=== PATIENT | female | born 1960 | race Caucasian/White ===

== ENCOUNTER 2017-11-23 13:32 | Day surgery (SDC) | payer BC ==
[~2017-11-23 13:32] MED LIST: Lactated Ringers 1,000 ML IV SCH; Propofol 200 MG/20 ML SDV ONE; Sodium Chloride 0.9% 5 ML Syringe FLUSH PRN
[2017-11-23] MEDS ORDERED: Propofol 200 MG/20 ML SDV IV ONE (14:44)
--- NOTE | 2017-11-23 14:51 | PCM.PN ---
- General Info Date of Service: 11/23/17 - Review of Systems Systems Review Comment:: 57-year-old female referred for screening colonoscopy. She does have a chronic history of morning diarrhea. She is medically stable to proceed today with no significant recent change in her health status. I discussed the proposed colonoscopy with the patient. Risks are reviewed including but not limited to bleeding and GI injury. She agrees to undergo colonoscopy today. - Patient Data Vitals - Most Recent: Last Vital Signs Temp 96.7 F 11/23/17 13:49 Pulse 70 11/23/17 13:49 Resp 18 11/23/17 13:49 BP 131/81 11/23/17 13:49 Pulse Ox 99 11/23/17 13:49 Weight - Most Recent: 72.575 kg Med Orders - Current: Current Medications Lactated Ringer's (Ringers, Lactated) 1,000 mls @ 50 mls/hr IV ASDIRECTED ADINA Last Admin: 11/23/17 14:13 Dose: 50 mls/hr Sodium Chloride (Syrex Flush) 5 ml FLUSH Q8HR PRN PRN Reason: Keep Vein Open Discontinued Medications Propofol (Diprivan 20 Ml) Confirm Administered Dose 400 mg .ROUTE .STK-MED ONE Stop: 11/23/17 12:40 - Problem List Review Problem List Initiated/Reviewed/Updated: Yes - My Orders Last 24 Hours: My Active Orders 11/23/17 13:30 Patient to Empty Bladder [RC] ASDIRECTED Peripheral IV Care [RC] . DIRECTED Verify Patient Consent Obtain [RC] ASDIRECTED Lactated Ringers [Ringers, Lactated] 1,000 ml IV ASDIRECTED Sodium Chloride 0.9% [Syrex Flush] 5 ml FLUSH Q8HR PRN Peripheral IV Insertion Adult [OM.PC] Routine 11/23/17 Breakfast Nothing Per Oral Diet [DIET] - Assessment Assessment:: Colon cancer screening - Plan Plan:: Colonoscopy
--- NOTE | 2017-11-23 15:28 | PCM.OPNOTE ---
- General Post-Op/Procedure Note Date of Surgery/Procedure: 11/23/17 Operative Procedure(s): Colonoscopy Findings: Mild sigmoid diverticulosis External hemorrhoids Pre Op Diagnosis: Colon cancer screening Post-Op Diagnosis: Diverticulosis. Hemorrhoids Anesthesia Technique: MAC Primary Surgeon: Gianni Mcelroy Pathology: none Output, Urine Amount: 0 EBL in mLs: 0 Complications: None Condition: Good
--- NOTE | 2017-11-24 01:23 | PROC ---
PROVIDER: Gianni Mcelroy MD PRE-PROCEDURE DIAGNOSIS: Colon cancer screening. POST-PROCEDURE DIAGNOSIS: Sigmoid diverticulosis and external hemorrhoids. PROCEDURE PERFORMED: Colonoscopy. INDICATIONS FOR SURGERY: This 57-year-old female is referred today for screening colonoscopy. Her last colon exam was over 15 years ago. FINDINGS: The patient has a mild degree of sigmoid diverticulosis which does not appear to be acutely inflamed or otherwise complicated. She also has moderate-sized external hemorrhoids. The colon and rectum otherwise appear normal. PROCEDURE: The patient was taken to the operating room. She was given intravenous sedation, and with her in the left lateral decubitus position, digital rectal exam was performed showing no rectal masses. The Olympus colonoscope was inserted into the rectum, a retroflexed examination of the rectal canal is performed. The scope was then carefully advanced under direct visualization through the entire length of the colon until the cecum was reached. Cecal acquisition was confirmed by noting the normal internal cecal anatomy including the appendiceal orifice and ileocecal valve. The light was also noted to transilluminate the abdominal wall in the right lower quadrant. After examining the cecum, the scope was slowly withdrawn sequentially re- examining the colonic segments until the entire colon and rectum had been fully examined. The scope was then removed, and the patient was taken from the operating room in satisfactory condition. ESTIMATED BLOOD LOSS: Zero. COMPLICATIONS: None. PROGNOSIS: Good. /[id number]/MODL
== END 2017-11-23 17:10 | disposition home or self-care (01) ==
LOC: KA.SDS 13:32
PROVIDERS: ATTEND Surgery
DX: Z12.11 Encounter for screening for malignant neoplasm of colon (principal); K57.30 Diverticulosis of large intestine without perforation or abscess without bleeding; K64.4 Residual hemorrhoidal skin tags; F41.9 Anxiety disorder, unspecified; E55.9 Vitamin D deficiency, unspecified; Z79.899 Other long term (current) drug therapy
CPT/HCPCS: J2704; J7120

== ENCOUNTER 2021-04-17 12:00 | Emergency (ER) | payer BC ==
[2021-04-17] MEDS ORDERED: Sodium Chloride 0.9% 10 ML Syringe FLUSH PRN (12:13)
[2021-04-17 12:48] LABS: ANION GAP 14.2 mmol/L (5-15); CHLORIDE,CL 98 mmol/L (98-107); SODIUM,NA 135 mmol/L (136-145)
--- NOTE | 2021-04-17 13:10 | EDM.PDOC ---
ED HPI GENERAL MEDICAL PROBLEM - General Chief Complaint: Gastrointestinal Problem Stated Complaint: STOMACH CRAMPS,NOT FEELING GOOD Time Seen by Provider: 04/17/21 12:45 Source of Information: Reports: Patient History Limitations: Reports: No Limitations - History of Present Illness INITIAL COMMENTS - FREE TEXT/NARRATIVE: Patient presents with abdominal pain and cramping; also rectal pain and diarrhea. Increasing over past couple days. Nausea but no vomiting. Has had chills but hasn't checked temperature. Two weeks ago she was diagnosed with diverticulitis and took antibiotics for a week. She felt a lot like she feels now and it never completely resolved. CT showed significant diverticulitis of sigmoid colon and a walled-off abscess. 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 She has never had a known infection from this and prior to two weeks ago, had never had diverticulitis; just diverticulosis. 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: Psychiatric History: Reports: Anxiety Endocrine/Metabolic History: Reports: Hypothyroidism - Infectious Disease History Infectious Disease History: Reports: Chicken Pox - Past Surgical History GI Surgical History: Reports: Cholecystectomy, Colonoscopy, EGD Other GI Surgeries/Procedures: rectal-vaginal fistula Female Surgical History: Reports: Hysterectomy Endocrine Surgical History: Reports: None Social & Family History - Caffeine Use Caffeine Use: Reports: Coffee, Soda Other Caffeine Use: diet ED ROS GENERAL - Review of Systems Review Of Systems: See Below Constitutional: Reports: Chills, Malaise, Decreased Appetite HEENT: Denies: Throat Pain, Vision Change Respiratory: Denies: Shortness of Breath, Cough Cardiovascular: Denies: Chest Pain, Lightheadedness, Syncope GI/Abdominal: Reports: Abdominal Pain, Diarrhea, Nausea. Denies: Vomiting : Denies: Dysuria, Flank Pain Musculoskeletal: Reports: No Symptoms Skin: Reports: No Symptoms Neurological: Denies: Confusion, Dizziness, Seizure, Syncope, Trouble Speaking, Difficulty Walking Psychiatric: Reports: No Symptoms ED EXAM, GI/ABD - Physical Exam Exam: See Below Exam Limited By: No Limitations General Appearance: Alert, WD/WN, No Apparent Distress Eyes: Bilateral: Normal Appearance, EOMI Ears: Normal External Exam, Hearing Grossly Normal Nose: Normal Inspection, No Blood Throat/Mouth: Normal Inspection, Normal Lips, Normal Voice, No Airway Compromise Head: Atraumatic, Normocephalic Neck: Normal Inspection, Full Range of Motion Respiratory/Chest: No Respiratory Distress, Lungs Clear, Normal Breath Sounds Cardiovascular: Regular Rate, Rhythm, No Murmur GI/Abdominal Exam: Soft, No Organomegaly, No Distention, Tender (low abdomen, especially LLQ), Other (moderate bruit in LUQ, likely renal artery). No: Guarding, Rigid Rectal (Female) Exam: Other (I did external rectal exam to rule out superficial abscess; no inflammation or tenderness blair-rectally. No ZEN.). No: Hemorrhoids, Perirectal Abscess, Rectal Fissure, Tenderness Back Exam: Normal Inspection, Full Range of Motion. No: CVA Tenderness (L), CVA Tenderness (R) Extremities: Normal Inspection, Normal Range of Motion, No Pedal Edema Psychiatric: Normal Affect, Normal Mood Skin Exam: Warm, Dry, Intact, Normal Color, No Rash Course - Vital Signs Last Recorded V/S: Last Vital Signs Temp 97.7 F 04/17/21 16:06 Pulse 83 04/17/21 16:06 Resp 20 04/17/21 16:06 BP 134/84 04/17/21 16:06 Pulse Ox 99 04/17/21 16:06 - Orders/Labs/Meds Orders: Active Orders 24 hr Category Date Time Status Peripheral IV Care [RC] . DIRECTED Care 04/17/21 12:14 Active Sodium Chloride 0.9% [Normal Saline] 50 ml Med 04/17/21 13:45 Active IV ASDIRECTED Sodium Chloride 0.9% [Saline Flush] Med 04/17/21 12:13 Active 10 ml FLUSH Q8HR PRN Peripheral IV Insertion Adult [OM.PC] Routine Oth 04/17/21 12:13 Ordered Medication Orders Sodium Chloride (Normal Saline) 50 mls @ 200 mls/hr IV ASDIRECTED ADINA Last Admin: 04/17/21 13:42 Dose: 200 mls/hr Documented by: CHITO Sodium Chloride (Sodium Chloride 0.9% 10 Ml Syringe) 10 ml FLUSH Q8HR PRN PRN Reason: keep vein open Labs: Laboratory Tests 04/17/21 04/17/21 04/17/21 Range/Units 12:20 12:20 12:25 WBC 9.16 (5.00-10.00) 10^3/uL RBC 5.21 (3.80-5.50) 10^6/uL Hgb 15.9 (12.0-16.0) g/dL Hct 47.9 H (37.0-47.0) % MCV 91.9 (82.0-92.0) fL MCH 30.5 (27.0-31.0) pg MCHC 33.2 (32.0-36.0) g/dL RDW 12.4 (11.5-14.5) % Plt Count 240 (150-400) 10^3/uL MPV 9.5 (7.4-10.4) fL Immature Gran % (Auto) 0.2 (0.0-5.0) % Neut % (Auto) 85.0 H (50.0-70.0) % Lymph % (Auto) 8.1 L (20.0-40.0) % [place] % (Auto) 5.2 (2.0-8.0) % Eos % (Auto) 0.7 L (1.0-3.0) % Baso % (Auto) 0.8 (0.0-1.0) % Neut # (Auto) 7.79 H (2.50-7.00) 10^3/uL Lymph # (Auto) 0.74 L (1.00-4.00) 10^3/uL [place] # (Auto) 0.48 (0.10-0.80) 10^3/uL Eos # (Auto) 0.06 L (0.10-0.30) 10^3/uL Baso # (Auto) 0.07 (0.00-0.10) 10^3/uL Immature Gran # (Auto) 0.02 (0.00-0.50) 10^3/uL Sodium 135 L (136-145) mmol/L Potassium 4.0 (3.5-5.1) mmol/L Chloride 98 (98-107) mmol/L Carbon Dioxide 26.8 (21.0-32.0) mmol/L Anion Gap 14.2 (5-15) mmol/L BUN 9 (7-18) mg/dL Creatinine 0.81 (0.51-1.17) mg/dL Est Cr Clr Drug Dosing 72.72 mL/min Estimated GFR (MDRD) > 60 mL/min Glucose 92 (70-140) mg/dL Calcium 8.9 (8.7-10.3) mg/dL Total Bilirubin 0.3 (0.2-1.0) mg/dL AST 31 (15-37) U/L ALT 34 (14-63) U/L Alkaline Phosphatase 80 (46-116) U/L C-Reactive Protein 4.3 H (0.0-0.9) mg/dL Total Protein 7.6 (6.4-8.2) g/dL Albumin 3.69 (3.40-5.00) g/dL Lipase 176 (73-393) U/L Specimen Type Urincc Urine Color Yellow (YELLOW) Urine Appearance Clear (CLEAR) Urine pH 6.0 (5.0-9.0) Ur Specific [place] 1.015 (1.005-1.030) Urine Protein Negative (NEGATIVE) mg/dL Urine Glucose (UA) Negative (NEGATIVE) mg/dL Urine Ketones Negative (NEGATIVE) mg/dL Urine Occult Blood Trace-intact H (NEGATIVE) Urine Nitrite Negative (NEGATIVE) Urine Bilirubin Negative (NEGATIVE) Urine Urobilinogen 0.2 (0.2-1.0) E.U./dL Ur Leukocyte Esterase Trace H (NEGATIVE) Urine RBC 0-5 (0-5) /HPF Urine WBC 10-20 H (0-5) /HPF Ur Epithelial Cells Few /LPF Urine Bacteria Rare (NONE TO FEW) /HPF Meds: Medications Generic Name Dose Route Start Last Admin Trade Name Freq PRN Reason Stop Dose Admin Sodium Chloride 50 mls @ 200 mls/hr 04/17/21 13:45 04/17/21 13:42 Normal Saline IV 200 mls/hr ASDIRECTED ADINA Administration Sodium Chloride 10 ml 04/17/21 12:13 Sodium Chloride 0.9% 10 Ml Syringe FLUSH Q8HR PRN keep vein open Discontinued Medications Generic Name Dose Route Start Last Admin Trade Name Zhen PRN Reason Stop Dose Admin Sodium Chloride 1,000 mls @ 999 mls/hr 04/17/21 15:50 04/17/21 16:00 Normal Saline IV 04/17/21 16:50 999 mls/hr .BOLUS ONE Administration Ciprofloxacin/Dextrose 400 mg/ 200 mls @ 200 mls/hr 04/17/21 16:29 04/17/21 16:45 Premix IV 04/17/21 17:28 200 mls/hr ONETIME ONE Administration Iopamidol 75 ml 04/17/21 13:31 04/17/21 13:42 Iopamidol 755 Mg/Ml 75 Ml Bottle IVPUSH 04/17/21 13:32 75 ml ONETIME ONE Administration - Re-Assessments/Exams Free Text/Narrative Re-Assessment/Exam: 04/17/21 15:08 ANC is 7.79, CRP is 4.3. CT shows acute diverticulitis in sigmoid colon and intramural abscess. Small volume of free fluid in the pelvis and a 13 mm left ovarian follicle. Discussed findings and recommendations with patient. Since this has not resolved on a course of antibiotics, I am recommending GI/surgical consult for further evaluation of the abscess and possibly the fistula. She would like to go to [place] if it can be taken care of there but would rather go to [place] than [place]. 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 04/17/21 15:50 [place] was full. [facility] in [place] is full but we are first on their waiting list. [facility] is also waiting on bed but I discussed case with Dr. Kraus, hospitalist, who accepted for transfer; they will call when available. Patient is quite comfortable and we will give a liter of fluids IV now. 04/17/21 17:53 [facility] called back with bed available. Patient has been given one liter of saline and Cipro 400 mg IV. She is stable and her son will drive her to [place]. Departure - Departure Time of Disposition: 17:55 Disposition: DC/Tfer to Acute Hospital 02 Condition: Good Clinical Impression: Acute diverticulitis, Abdominal bruit, Rectovaginal fistula, Elevated C-reac tive protein (CRP), Pelvic abscess in female Abdominal pain Qualifiers: Abdominal location: lower abdomen, unspecified Qualified Code(s): R10.30 - Lower abdominal pain, unspecified - Discharge Information Referrals: Jodi Lewis MD [Primary Care Provider] - Forms: ED Department Discharge Sepsis Event Note (ED) - Evaluation Sepsis Screening Result: Possible Sepsis Risk - Focused Exam Vital Signs: Vital Signs Temp Pulse Resp BP Pulse Ox 04/17/21 16:06 97.7 F 83 20 134/84 99 04/17/21 12:07 97.7 F 105 H 16 132/93 H 98 - My Orders Last 24 Hours: My Active Orders 04/17/21 12:13 Sodium Chloride 0.9% [Saline Flush] 10 ml FLUSH Q8HR PRN Peripheral IV Insertion Adult [OM.PC] Routine 04/17/21 12:14 Peripheral IV Care [RC] . DIRECTED 04/17/21 13:45 Sodium Chloride 0.9% [Normal Saline] 50 ml IV ASDIRECTED - Assessment/Plan Last 24 Hours: My Active Orders 04/17/21 12:13 Sodium Chloride 0.9% [Saline Flush] 10 ml FLUSH Q8HR PRN Peripheral IV Insertion Adult [OM.PC] Routine 04/17/21 12:14 Peripheral IV Care [RC] . DIRECTED 04/17/21 13:45 Sodium Chloride 0.9% [Normal Saline] 50 ml IV ASDIRECTED
[2021-04-17] MEDS ORDERED: Iopamidol 755 Mg/ML 75 ML Bottle IVPUSH ONE (13:31)
[2021-04-17] MEDS ORDERED: Sodium Chloride 0.9% 50 ML IV SCH (13:45)
--- NOTE | 2021-04-17 14:20 | CT ---
[id number] CT/CT Abdomen Pelvis W IV EXAM: ABDOMEN AND PELVIS CT WITH CONTRAST INDICATION: PAIN IN LEFT LOWER QUADRANT AND RECTUM. COMPARISON: April 02, 2021. DISCUSSION: There are multiple diverticula of the colon. In the sigmoid colon there is a segment of mild to moderate wall thickening compatible with acute diverticulitis with possible 10 mm intramural abscess (image 122 series 2). There is a small volume of free fluid in the pelvis. No remote free air or drainable abscess is currently identified. The remaining segments of colon demonstrate borderline wall thickening likely relating to incomplete distention rather than colitis. Cholecystectomy. The liver, pancreas, spleen, adrenal glands, kidneys, small bowel, and the appendix are normal in appearance. The left ovary contains 13 mm follicle. The uterus is surgically absent. Degenerative changes in the spine most significant at L3-L4. IMPRESSION: 1. Sigmoid diverticulitis with increased inflammatory changes and possible small intramural abscess. No drainable abscess or remote free air. Stevie Smith MD 04/17/21 [id number] Thank you for allowing us to participate in the care of your patient.
[2021-04-17] MEDS ORDERED: Sodium Chloride 0.9% 1,000 ML IV ONE (15:50)
[2021-04-17] MEDS ORDERED: Ciprofloxacin in D5W 400 MG in Premix Bag 1 BAG IV ONE ×2 (16:29)
== END 2021-04-17 18:00 ==
LOC: KA.ED 12:05
DX: K57.32 Diverticulitis of large intestine without perforation or abscess without bleeding (principal); N82.3 Fistula of vagina to large intestine; N73.9 Female pelvic inflammatory disease, unspecified; R79.82 Elevated C-reactive protein (CRP); E03.9 Hypothyroidism, unspecified; Z79.899 Other long term (current) drug therapy
CPT/HCPCS: 36415; 74177; 80053; 81001; 83690; 85025; 86140; 96365; 99284; 99285-25; J0744; J7030; Q9967

== ENCOUNTER 2022-07-07 11:37 | Inpatient (IN) | payer BC ==
[2022-07-07] MEDS ORDERED: Sodium Chloride 0.9% 10 ML Syringe FLUSH PRN (12:05)
[2022-07-07] MEDS ORDERED: Sodium Chloride 0.9% 1,000 ML IV SCH (12:15)
[2022-07-07 12:37] LABS: ANION GAP 12.4 mmol/L (5-15); CHLORIDE,CL 96 mmol/L (98-107); SODIUM,NA 134 mmol/L (136-145)
[2022-07-07 12:38] LABS: ESTIMATED GFR 73 mL/min (>=60)
[2022-07-07] MEDS ORDERED: Iopamidol 755 Mg/ML 75 ML Bottle IVPUSH ONE (13:45)
[2022-07-07] MEDS ORDERED: Diatrizoate Meglumine/Diatrizoate Sodium 37% 30 ML Bottle PO ONE (13:45)
[2022-07-07] MEDS ORDERED: Sodium Chloride 0.9% 50 ML IV SCH (13:45)
[2022-07-07] MEDS ORDERED: cefTRIAXone 1 GM Vial IVPUSH SCH (17:00)
[2022-07-07] MEDS: metroNIDAZOLE/Normal Saline 500 MG in Premix Bag 1 BAG IV SCH (17:43)
[2022-07-07] MEDS: Lactated Ringers 1,000 ML IV SCH (18:56)
[2022-07-08] MEDS: metroNIDAZOLE/Normal Saline 500 MG in Premix Bag 1 BAG IV SCH ×2 (00:25→08:13)
[2022-07-08] MEDS: Lactated Ringers 1,000 ML IV SCH (05:51)
[2022-07-08] MEDS: Levothyroxine 25 MCG Tab PO SCH ×2 (05:51→06:29)
[2022-07-08] MEDS: Acetaminophen 325 MG Tab PO PRN ×3 (06:01→19:30)
[2022-07-08 07:34] LABS: ANION GAP 11.3 mmol/L (5-15)
[2022-07-08] MEDS ORDERED: Piperacillin/Tazobactam 3.375 GM in Sodium Chloride 0.9% 50 ML IV SCH (09:15)
[2022-07-08] MEDS: TAZOBACTAM IV SCH ×3 (10:47→21:25)
[2022-07-08] MEDS: DEXT IV SCH ×3 (10:47→21:25)
[2022-07-08] MEDS: PIPERACILLIN IV SCH ×3 (10:47→21:25)
[2022-07-08] MEDS: Sodium Chloride 0.9% 1,000 ML IV SCH ×2 (10:47→21:25)
[2022-07-08] MEDS: ALPRAZolam 0.25 MG Tab PO PRN ×2 (16:15→22:23)
[2022-07-09] MEDS: PIPERACILLIN IV SCH ×3 (03:31→15:29)
[2022-07-09] MEDS: TAZOBACTAM IV SCH ×3 (03:31→15:29)
[2022-07-09] MEDS: DEXT IV SCH ×3 (03:31→15:29)
[2022-07-09] MEDS: Levothyroxine 25 MCG Tab PO SCH ×2 (06:07→07:11)
[2022-07-09 07:30] LABS: ANION GAP 13.2 mmol/L (5-15)
[2022-07-09] MEDS ORDERED: Levothyroxine 25 MCG Tab PO SCH (07:30)
[2022-07-09] MEDS: Sodium Chloride 0.9% 1,000 ML IV SCH (08:33)
[2022-07-09] MEDS ORDERED: Piperacillin/Tazobactam/Dext 3.375 GM in Premix Bag 1 BAG IV SCH (15:31)
[2022-07-09] MEDS: Piperacillin/Tazobactam/Dext 3.375 GM in Premix Bag 1 BAG IV SCH (21:38)
[2022-07-09] MEDS: ALPRAZolam 0.25 MG Tab PO PRN (22:37)
[2022-07-10] MEDS: Piperacillin/Tazobactam/Dext 3.375 GM in Premix Bag 1 BAG IV SCH ×3 (02:25→07:43)
[2022-07-10] MEDS: Acetaminophen 325 MG Tab PO PRN (02:31)
[2022-07-10] MEDS: Levothyroxine 25 MCG Tab PO SCH (06:29)
== END 2022-07-10 08:40 | disposition home or self-care (01) | DRG 244 ==
LOC: KA.OC 11:37 → KA.MS 11:37
PROVIDERS: ADMIT Nurse Practitioner Family; ATTEND Nurse Practitioner Family
DX: K57.20 Diverticulitis of large intestine with perforation and abscess without bleeding (principal); E03.9 Hypothyroidism, unspecified; Z79.890 Hormone replacement therapy
CPT/HCPCS: 36415; 74177; 80048; 80053; 84145; 85025; A9270-GY; J0696; J2543; J3490; J7030; J7120; Q9963; Q9967